=== PATIENT | male | born 1990 | race American Indian/Alaskan Native ===

== ENCOUNTER 2018-01-17 09:32 | Emergency (ER) | payer OTHER ==
[2018-01-17 11:18] VITALS: BP 151/79
--- NOTE | 2018-01-17 13:52 | Emergency Department Report ---
ED Back Pain/Injury HPI - General Chief Complaint: Back Pain/Injury Stated Complaint: BACK PAIN Time Seen by Provider: 01/17/18 13:38 Source: patient Limitations: No Limitations - History of Present Illness Initial Comments: This is a 27-year-old male here report that his lower back hurts on both side 1 week. He said he was seen at the Emergency department one week ago and they treated him with muscle relaxer and pain medication but his pain is no better. He is concerned about not improving. He said he does repetitive heavy lifting at work. Denies any pain at rest. Pain in his mid spine and denies any radiation of pain. Denies any fever or chills or nausea or vomiting. Denies any urinary symptoms. Pain is achy and worse with movement pain is 2/10 MD Complaint: back pain Onset/Timin -: week(s) Similar Symptoms Previously: Yes Place: work Radiation: none Severity: mild Severity scale (0 -10): 2 Quality: aching Consistency: intermittent Improves With: other (rest) Worsens With: movement Context: while lifting Associated Symptoms: denies: confusion, weakness, chest pain, numbness, difficulty walking, cough, difficulty urinating, diaphoresis, incontinence, fever/chills, constipation, headaches, abdominal pain, loss of appetite, malaise , nausea/vomiting, rash, seizure, shortness of breath, syncope Treatments Prior to Arrival: NSAIDS - Related Data Previous Rx's Medication Instructions Recorded Last Taken Type Ibuprofen [Motrin] 800 mg PO Q8HR PRN #15 tablet 01/17/18 Unknown Rx Metaxalone [Skelaxin] 800 mg PO Q12H PRN #12 tablet 01/17/18 Unknown Rx Allergies Allergy/AdvReac Type Severity Reaction Status Date / Time No Known Allergies Allergy Unverified 01/17/18 11:12 ED Review of Systems ROS: Stated complaint: BACK PAIN Other details as noted in HPI Constitutional: denies: chills, fever Eyes: denies: eye pain, eye discharge, vision change ENT: ear pain Respiratory: denies: cough, shortness of breath, wheezing Cardiovascular: denies: chest pain, palpitations, edema, syncope Gastrointestinal: denies: abdominal pain, nausea, vomiting, diarrhea, constipation, hematemesis, melena, hematochezia Genitourinary: denies: urgency, dysuria, frequency, hematuria, discharge, testicular pain, testicular mass Musculoskeletal: back pain. denies: joint swelling, arthralgia Skin: denies: rash, lesions Neurological: denies: headache, weakness, numbness, paresthesias, confusion, abnormal gait, vertigo ED Past Medical Hx - Past Medical History Previous Medical History?: No - Surgical History Past Surgical History?: No - Family History Family history: hypertension - Social History Smoking Status: Never Smoker Substance Use Type: None - Medications Home Medications: Home Medications Medication Instructions Recorded Confirmed Last Taken Type Ibuprofen [Motrin] 800 mg PO Q8HR PRN #15 tablet 01/17/18 Unknown Rx Metaxalone [Skelaxin] 800 mg PO Q12H PRN #12 tablet 01/17/18 Unknown Rx ED Physical Exam - General Limitations: No Limitations General appearance: alert, in no apparent distress - Head Head exam: Present: atraumatic, normocephalic, normal inspection, other (normal exam) - Eye Eye exam: Present: normal appearance, PERRL, EOMI Pupils: Present: normal accommodation - ENT ENT exam: Present: normal exam, normal orophraynx, mucous membranes moist - Neck Neck exam: Present: normal inspection, full ROM, other (no C-spine tenderness). Absent: tenderness, lymphadenopathy - Respiratory Respiratory exam: Present: normal lung sounds bilaterally. Absent: respiratory distress, chest wall tenderness - Cardiovascular Cardiovascular Exam: Present: regular rate, normal rhythm, normal heart sounds - GI/Abdominal GI/Abdominal exam: Present: soft, normal bowel sounds. Absent: distended, tenderness, rigid, organomegaly, mass - Extremities Exam Extremities exam: Present: normal inspection, full ROM, normal capillary refill , other (No cce. + 2 pulses in all extremities, no neurovascular compromise). Absent: tenderness, pedal edema, joint swelling, calf tenderness - Back Exam Back exam: Present: normal inspection, full ROM, paraspinal tenderness (lumbar) , other (ambulates without any difficulty). Absent: tenderness, CVA tenderness (R), CVA tenderness (L), muscle spasm, vertebral tenderness, rash noted - Expanded Back Exam Expanded Back exam: Absent: saddle anesthesia Back exam: Negative Straight Leg Raising: Left, Right - Neurological Exam Neurological exam: Present: alert, oriented X3, normal gait, reflexes normal. Absent: motor sensory deficit - Expanded Neurological Exam Expanded Neurological exam: Absent: innattentive, memory loss-remote event, memory loss- recent event, ataxia, receptive aphasia, expressive aphasia, total aphasia, tremor, protecting the airway Patient oriented to: Present: person, place, time Speech: Present: fluid speech Cranial nerves: EOM's Intact: Normal, Gag Reflex: Normal, Tongue Deviation: Normal, Nystagmus: Normal, Facial Sensation: Normal Cerebellar function: Romberg: Normal Upper motor neuron: Pronator Drift: Normal, Sensory Extinction: Normal Sensory exam: Upper Extremity Light Touch: Normal, Upper Extremity Pin Prick: Normal, Upper Extremity Temperature: Normal, UE 2 Point Discrimination: Normal, Lower Extremity Light Touch: Normal, Lower Extremity Pin Prick: Normal, Lower Extremity Temperature: Normal, LE 2 Point Discrimination: Normal Motor strength exam: RUE: 5, LUE: 5, RLE: 5, LLE: 5 Best Eye Response (Kallie): (4) open spontaneously Best Motor Response (Kallie): (6) obeys commands Best Verbal Response ([place]): (5) oriented Kallie Total: 15 - Psychiatric Psychiatric exam: Present: normal affect, normal mood - Skin Skin exam: Present: warm, dry, intact, normal color. Absent: rash ED Course Vital Signs 01/17/18 11:13 Temperature 99.0 F Pulse Rate 83 Respiratory 16 Rate Blood Pressure 151/79 O2 Sat by Pulse 97 Oximetry - Reevaluation(s) Reevaluation #1: 01/17/18 14:21 received Decadron 10 mg IM, Flexeril 10 mg by mouth and Motrin 800 mg by mouth in emergency room with ED Medical Decision Making - Medical Decision Making This is a 27-year-old male here reported that he injured his back last week while lifting heavy objects at work. He has been seen at the emergency room one week ago and he said his pain is still there Assessment/plan 1: Low back pain-better after Decadron, Motrin and was sent home and Motrin 2 lumbar strain-bit after Flexeril and will sent home on Flexeril This is a patient that he has strained his lower back from lifting and any need for follow-up with orthopedic doctor in 2-3 days. He was understandable give him referral to Dr. Torre and also follow up with his primary care physician. Pain is better and discharged home on relaxin and Motrin Critical care attestation.: If time is entered above; I have spent that time in minutes in the direct care of this critically ill patient, excluding procedure time. ED Disposition Clinical Impression: Low back strain Qualifiers: Encounter type: initial encounter Qualified Code(s): S39.012A - Strain of muscle, fascia and tendon of lower back, initial encounter Back pain Qualifiers: Back pain location: low back pain Chronicity: acute Back pain laterality: bilateral Sciatica presence: without sciatica Qualified Code(s): M54.5 - Low back pain Disposition: - TO HOME OR SELFCARE Is pt being admited?: No Does the pt Need Aspirin: No Condition: Stable Instructions: Muscle Strain (ED), Low Back Strain (ED), Acute Low Back Pain (ED ) Additional Instructions: Please follow up with orthopedic doctor He is do not take Skelaxin if driving or operating heavy machinery with this medication causes drowsiness. Take Motrin for pain Prescriptions: Ibuprofen [Motrin] 800 mg PO Q8HR PRN #15 tablet PRN Reason: pain Metaxalone [Skelaxin] 800 mg PO Q12H PRN #12 tablet PRN Reason: muscle strain Referrals: PRIMARY CAREMD [Primary Care Provider] - 2-3 Days HÉCTOR TORRE MD [Staff Physician] - 2-3 Days Forms: Work/School Release Form(ED)
[2018-01-17] MEDS ORDERED: FLEXERIL PO ONE (13:54)
[2018-01-17] MEDS ORDERED: DECADRON IM ONE (13:54)
[2018-01-17] MEDS ORDERED: MOTRIN PO ONE (13:55)
== END 2018-01-17 14:52 | disposition home or self-care (01) ==
LOC: ED 09:32
DX: S39.012A Strain of muscle, fascia and tendon of lower back, initial encounter (principal); X50.9XXA Other and unspecified overexertion or strenuous movements or postures, initial encounter; Y93.89 Activity, other specified; Y92.69 Other specified industrial and construction area as the place of occurrence of the external cause; Y99.8 Other external cause status
CPT/HCPCS: 96372; 99282; J1100